=== PATIENT | female | born 1995 | race American Indian/Alaskan Native ===

== ENCOUNTER 2018-03-21 20:25 | Emergency (ER) | payer SELFPAY ==
[2018-03-21 21:15] LABS: Basophils % (Auto) 0.3 % (0.0-1.8); Eosinophils % (Auto) 0.2 % (0.0-4.3); Hematocrit 35.6 % (30.3-42.9); Hemoglobin 11.3 gm/dl (10.1-14.3); Lymphocytes # (Auto) 2.7 K/mm3 (1.2-5.4); Lymphocytes % (Auto) 22.3 % (13.4-35.0); Mean Corpuscular HGB Conc 32 % (30-34); Mean Corpuscular Hemoglobin 26 pg (28-32); Mean Corpuscular Volume 83 fl (79-97); Monocytes # (Auto) 1.1 K/mm3 (0.0-0.8); Monocytes % (Auto) 9.2 % (0.0-7.3); Platelet Count 202 K/mm3 (140-440); Red Blood Count 4.31 M/mm3 (3.65-5.03); Red Cell Distribution Width 15.3 % (13.2-15.2)
[2018-03-21 21:42] LABS: Bilirubin,Urine NEG (Negative); Blood,Urine NEG (Negative); Color,Urine Yellow (Yellow); Mucus,Urine 1+ /HPF; Protein,Urine <15 mg/dL mg/dL (Negative)
[2018-03-21 21:43] LABS: HCG Qualitative,Urine Negative (Negative)
[2018-03-21 21:59] LABS: Alanine Aminotransferase 5 units/L (7-56); BUN/Creatinine Ratio 12; Blood Urea Nitrogen 6 mg/dL (7-17); Calcium 8.8 mg/dL (8.4-10.2); Hemolysis Index 3
--- NOTE | 2018-03-21 22:58 | Emergency Department Report ---
ED Abdominal Pain HPI - General Chief Complaint: Abdominal Pain Stated Complaint: NECK,THROAT,STOMACH,URINATION PAIN Time Seen by Provider: 03/21/18 22:55 Source: patient Mode of arrival: Ambulatory Limitations: No Limitations - History of Present Illness Initial Comments: 23-year-old female past medical history none presents with complaint of approximately 5 days of sore throat. Possible slight increased urinary frequency. Denies nausea vomiting or cough. States that one of her children has been diagnosed with strep throat and has been treated over the last few days for strep throat. Child tested positive for strep throat. Patient is currently awake alert and oriented 3 fully lucid. No trismus or drooling. Denies any chest pain or abdominal pain at this time. Patient states she had some abdominal pain earlier this week but does not have any at this time. Onset/Timin -: days(s) Severity: mild Quality: aching Improves With: nothing Associated Symptoms: other (sore throat) - Related Data Previous Rx's Medication Instructions Recorded Last Taken Type Dextromethorphan/Benzocaine 1 each PO Q6H PRN #1 pack 03/21/18 Unknown Rx [Cepacol Sorethroat-Cough Chloe] Ibuprofen [Motrin] 600 mg PO Q8H PRN #20 tablet 03/21/18 Unknown Rx Sulfamethoxazole/Trimethoprim 1 each PO BID #6 tablet 03/21/18 Unknown Rx [Bactrim DS TAB] Allergies Allergy/AdvReac Type Severity Reaction Status Date / Time No Known Allergies Allergy Verified 08/21/16 16:07 ED Review of Systems ROS: Stated complaint: NECK,THROAT,STOMACH,URINATION PAIN Other details as noted in HPI Constitutional: denies: chills, fever Eyes: denies: eye pain, eye discharge, vision change ENT: throat pain. denies: ear pain Respiratory: denies: cough, shortness of breath, wheezing Cardiovascular: denies: chest pain, palpitations Endocrine: no symptoms reported Gastrointestinal: denies: abdominal pain, nausea, diarrhea Genitourinary: denies: urgency, dysuria, discharge Musculoskeletal: denies: back pain, joint swelling, arthralgia Skin: denies: rash, lesions Neurological: denies: headache, weakness, paresthesias Psychiatric: denies: anxiety, depression Hematological/Lymphatic: denies: easy bleeding, easy bruising ED Past Medical Hx - Past Medical History Previous Medical History?: No - Surgical History Past Surgical History?: No - Social History Smoking Status: Never Smoker Substance Use Type: None - Medications Home Medications: Home Medications Medication Instructions Recorded Confirmed Last Taken Type Dextromethorphan/Benzocaine 1 each PO Q6H PRN #1 pack 03/21/18 Unknown Rx [Cepacol Sorethroat-Cough Chloe] Ibuprofen [Motrin] 600 mg PO Q8H PRN #20 tablet 03/21/18 Unknown Rx Sulfamethoxazole/Trimethoprim 1 each PO BID #6 tablet 03/21/18 Unknown Rx [Bactrim DS TAB] ED Physical Exam - General Limitations: No Limitations General appearance: alert, in no apparent distress - Head Head exam: Present: atraumatic, normocephalic - Eye Eye exam: Present: normal appearance, PERRL, EOMI - ENT ENT exam: Present: mucous membranes moist - Expanded ENT Exam Expanded Throat exam: Positive: tonsillar erythema (bilateral tonsillar erythema. 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 Absent: respiratory distress - Cardiovascular Cardiovascular Exam: Present: regular rate, normal rhythm. Absent: systolic murmur, diastolic murmur, rubs, gallop - GI/Abdominal GI/Abdominal exam: Present: soft (abdomen soft nontender nondistended), normal bowel sounds - Extremities Exam Extremities exam: Present: normal inspection - Back Exam Back exam: Present: normal inspection - Neurological Exam Neurological exam: Present: alert, oriented X3 - Psychiatric Psychiatric exam: Present: normal affect, normal mood - Skin Skin exam: Present: warm, dry, intact, normal color. Absent: rash ED Course Vital Signs 03/21/18 20:50 Temperature 98.7 F Pulse Rate 99 H Respiratory 17 Rate Blood Pressure 114/78 O2 Sat by Pulse 100 Oximetry ED Medical Decision Making - Lab Data Result diagrams: 03/21/18 21:06 03/21/18 21:06 - Medical Decision Making A/P: Pharyngitis, possible UTI 1-empiric course of Bactrim 3 day course. No clinical signs of pyelonephritis. No flank pain. Patient is symptomatic does complain of some dysuria. Urinalysis shows some leukocytes 2-will treat patient empirically for strep throat based on symptoms and contact with family member also has strep 3-Motrin when necessary, throat lozenges when necessary 4-follow-up with primary care doctor. Vital signs stable for discharge. Patient tolerating by mouth fluid and food without difficulty before discharge Critical care attestation.: If time is entered above; I have spent that time in minutes in the direct care of this critically ill patient, excluding procedure time. ED Disposition Clinical Impression: Urinary tract infection Qualifiers: Urinary tract infection type: acute cystitis Hematuria presence: without hematuria Qualified Code(s): N30.00 - Acute cystitis without hematuria Pharyngitis Qualifiers: Pharyngitis/tonsillitis etiology: unspecified etiology Qualified Code(s): J02.9 - Acute pharyngitis, unspecified Disposition: TO HOME OR SELFCARE Is pt being admited?: No Does the pt Need Aspirin: No Condition: Stable Instructions: Urinary Tract Infection in Women (ED), Pharyngitis (ED) Prescriptions: Dextromethorphan/Benzocaine [Cepacol Sorethroat-Cough Chloe] 1 each PO Q6H PRN #1 pack PRN Reason: Sore Throat Ibuprofen [Motrin] 600 mg PO Q8H PRN #20 tablet PRN Reason: Sore Throat Sulfamethoxazole/Trimethoprim [Bactrim DS TAB] 1 each PO BID #6 tablet Referrals: PRIMARY CARE, [Primary Care Provider] - 3-5 Days [facility] [Provider Group] - 3-5 Days [facility] [Outside] - 3-5 Days Time of Disposition: 23:18
[2018-03-21] MEDS ORDERED: MOTRIN PO ONE (23:09)
[2018-03-21] MEDS ORDERED: BICILLIN L-A IM ONE (23:10)
[2018-03-22 00:07] VITALS: BP 110/71
== END 2018-03-22 00:10 | disposition home or self-care (01) ==
LOC: ED 20:25
DX: N39.0 Urinary tract infection, site not specified (principal); J02.9 Acute pharyngitis, unspecified
CPT/HCPCS: 36415; 80053; 81001; 81025; 85025; 87116; 87430; 96372; 99283; J0561

== ENCOUNTER 2020-11-04 10:32 | Emergency (ER) | payer SELFPAY ==
[2020-11-04 11:53] VITALS: BP 112/51
--- NOTE | 2020-11-04 12:02 | Emergency Department Report ---
ED General Adult HPI - General Chief complaint: Upper Respiratory Infection Stated complaint: HEAD/BODY PAIN Time Seen by Provider: 11/04/20 11:57 Source: patient Mode of arrival: Ambulatory Limitations: No Limitations - History of Present Illness Initial comments: 25-year-old -Bh[place] female patient without past medical history presents with complaints of facial headache, congestion, and body aches x2 days. She states Tylenol and NyQuil are not helping. She denies any fever/chills/sweats, chest pain, shortness of breath, loss of taste/smell, nausea/vomiting/diarrhea, or abdominal pain. No vision changes, dizziness, numbness/tingling/weakness, confusion, or difficulty with speech/ambulation per patient. She rates her current headache as a 9/10 in severity and states it worsens with touching her face. - Related Data Previous Rx's Medication Instructions Recorded Last Taken Type Dextromethorphan/Benzocaine 1 each PO Q6H PRN #1 pack 03/21/18 Unknown Rx [Cepacol Sorethroat-Cough Chloe] Ibuprofen [Motrin] 600 mg PO Q8H PRN #20 tablet 03/21/18 Unknown Rx Sulfamethoxazole/Trimethoprim 1 each PO BID #6 tablet 03/21/18 Unknown Rx [Bactrim DS TAB] Fluticasone [Flonase] 2 spray NS QDAY #1 bottle 11/04/20 Unknown Rx Loratadine 10 mg PO QDAY #10 tablet 11/04/20 Unknown Rx Prednisone [predniSONE 10 mg 10 mg PO .TAPER #1 tab.ds.pk 11/04/20 Unknown Rx (6-Day Pack, 21 Tabs)] Allergies Allergy/AdvReac Type Severity Reaction Status Date / Time No Known Allergies Allergy Verified 08/21/16 16:07 ED Review of Systems ROS: Stated complaint: HEAD/BODY PAIN Other details as noted in HPI Constitutional: denies: chills, diaphoresis, fever, malaise, weakness Respiratory: denies: cough, shortness of breath Cardiovascular: denies: chest pain Gastrointestinal: denies: abdominal pain, nausea, vomiting Skin: denies: rash, lesions, change in color Neurological: headache. denies: weakness, numbness, paresthesias, confusion, abnormal gait ED Past Medical Hx - Past Medical History Previous Medical History?: No - Surgical History Past Surgical History?: No - Social History Smoking Status: Never Smoker Substance Use Type: None - Medications Home Medications: Home Medications Medication Instructions Recorded Confirmed Last Taken Type Dextromethorphan/Benzocaine 1 each PO Q6H PRN #1 pack 03/21/18 Unknown Rx [Cepacol Sorethroat-Cough Chloe] Ibuprofen [Motrin] 600 mg PO Q8H PRN #20 tablet 03/21/18 Unknown Rx Sulfamethoxazole/Trimethoprim 1 each PO BID #6 tablet 03/21/18 Unknown Rx [Bactrim DS TAB] Fluticasone [Flonase] 2 spray NS QDAY #1 bottle 11/04/20 Unknown Rx Loratadine 10 mg PO QDAY #10 tablet 11/04/20 Unknown Rx Prednisone [predniSONE 10 mg 10 mg PO .TAPER #1 tab.ds.pk 11/04/20 Unknown Rx (6-Day Pack, 21 Tabs)] ED Physical Exam - General Limitations: No Limitations General appearance: alert, in no apparent distress - Head Head exam: Present: atraumatic, normocephalic - Eye Eye exam: Present: normal appearance. Absent: scleral icterus - ENT ENT exam: Present: normal orophraynx, other (Frontal and bilateral maxillary sinus tenderness to palpation noted without any facial swelling or redness) - Neck Neck exam: Present: full ROM. Absent: tenderness - Respiratory Respiratory exam: Present: normal lung sounds bilaterally, respiratory distress - Cardiovascular Cardiovascular Exam: Present: regular rate, normal rhythm - Extremities Exam Extremities exam: Present: normal inspection - Back Exam Back exam: Present: normal inspection - Neurological Exam Neurological exam: Present: alert, oriented X3, normal gait. Absent: motor sensory deficit - Psychiatric Psychiatric exam: Present: normal affect, normal mood - Skin Skin exam: Present: warm, dry, intact, normal color. Absent: rash, cyanosis, diaphoretic, erythema ED Course Vital Signs 11/04/20 11:52 Temperature 97.8 F Pulse Rate 99 H Respiratory 16 Rate Blood Pressure 112/51 [Right] O2 Sat by Pulse 99 Oximetry ED Medical Decision Making - Medical Decision Making 25-year-old -B[place] female patient without past medical history presents with complaints of facial headache, congestion, and body aches x2 days. She states Tylenol and NyQuil are not helping. She denies any fever/chills/sweats, chest pain, shortness of breath, loss of taste/smell, nausea/vomiting/diarrhea, or abdominal pain. No vision changes, dizziness, numbness/tingling/weakness, confusion, or difficulty with speech/ambulation per patient. She rates her current headache as a 9/10 in severity and states it worsens with touching her face. Frontal sinus tenderness noted on exam. No fever or tachycardia noted. Will treat for viral sinusitis with steroids, antihistamines, and decongestants. Recommend follow-up with primary care doctor in 3 to 5 days. Discussed signs and symptoms that should prompt immediate return to the emergency department in detail with patient verbalizes understanding. She is well-appearing and stable for discharge home. Critical care attestation.: If time is entered above; I have spent that time in minutes in the direct care of this critically ill patient, excluding procedure time. ED Disposition Clinical Impression: Acute viral sinusitis Disposition: DC- TO HOME OR SELFCARE Is pt being admited?: No Condition: Stable Instructions: Sinusitis, Adult, [id number] Prescriptions: Fluticasone [Flonase] 2 spray NS QDAY #1 bottle Loratadine 10 mg PO QDAY #10 tablet Prednisone [predniSONE 10 mg (6-Day Pack, 21 Tabs)] 10 mg PO .TAPER #1 tab.ds.pk Referrals: [facility] [Provider Group] - 3-5 Days
== END 2020-11-04 12:41 | disposition home or self-care (01) ==
LOC: ED 10:32
DX: J01.90 Acute sinusitis, unspecified (principal); Z79.899 Other long term (current) drug therapy
CPT/HCPCS: 99281

== ENCOUNTER 2021-03-29 09:45 | Emergency (ER) | payer SELFPAY ==
[2021-03-29 10:09] VITALS: BP 127/76
[2021-03-29 10:48] LABS: Basophils % (Auto) 0.3 % (0.0-1.8); Eosinophils # (Auto) 0.1 K/mm3 (0.0-0.4); Eosinophils % (Auto) 2.3 % (0.0-4.3); Hematocrit 37.1 % (30.3-42.9); Hemoglobin 12.6 gm/dl (10.1-14.3); Lymphocytes # (Auto) 2.1 K/mm3 (1.2-5.4); Lymphocytes % (Auto) 41.1 % (13.4-35.0); Mean Corpuscular HGB Conc 34 % (30-34); Mean Corpuscular Volume 82 fl (79-97); Monocytes # (Auto) 0.6 K/mm3 (0.0-0.8); Monocytes % (Auto) 11.1 % (0.0-7.3); Platelet Count 257 K/mm3 (140-440); Red Blood Count 4.55 M/mm3 (3.65-5.03); Red Cell Distribution Width 15.4 % (13.2-15.2)
[2021-03-29 11:13] LABS: Alanine Aminotransferase 6 units/L (7-56); Albumin 4.2 g/dL (3.9-5); Blood Urea Nitrogen 8 mg/dL (7-17); Calcium 9.3 mg/dL (8.4-10.2); Hemolysis Index 4
[2021-03-29 11:15] LABS: BUN/Creatinine Ratio 13
--- NOTE | 2021-03-29 12:27 | Emergency Department Report ---
ED General Adult HPI - General Chief complaint: Medical Clearance Stated complaint: HEADACHES/NAUSEA Time Seen by Provider: 03/29/21 10:11 Source: patient Mode of arrival: Ambulatory Limitations: No Limitations - History of Present Illness Initial comments: Patient is a 26-year-old female presents emergency room with complaints of concern for . 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 She states that 3 days ago she had light vaginal spotting. She states typically she cycles for approximately 4 days. She has not filed up with a research editor. She states she has some mild lower abdominal cramping. She states one day last week she felt some morning sickness. She denies any fever, nausea, vomiting, diarrhea, pelvic pain, abnormal vaginal discharge, dysuria, urinary symptoms. She reports she took a test [id number] and states it was negative. No past medical history. no allergies to medications. - Related Data Previous Rx's Medication Instructions Recorded Last Taken Type Dextromethorphan/Benzocaine 1 each PO Q6H PRN #1 pack 03/21/18 Unknown Rx [Cepacol Sorethroat-Cough Chloe] Ibuprofen [Motrin] 600 mg PO Q8H PRN #20 tablet 03/21/18 Unknown Rx Sulfamethoxazole/Trimethoprim 1 each PO BID #6 tablet 03/21/18 Unknown Rx [Bactrim DS TAB] Fluticasone [Flonase] 2 spray NS QDAY #1 bottle 11/04/20 Unknown Rx Loratadine 10 mg PO QDAY #10 tablet 11/04/20 Unknown Rx Prednisone [predniSONE 10 mg 10 mg PO .TAPER #1 tab.ds.pk 11/04/20 Unknown Rx (6-Day Pack, 21 Tabs)] Allergies Allergy/AdvReac Type Severity Reaction Status Date / Time No Known Allergies Allergy Verified 08/21/16 16:07 ED Review of Systems ROS: Stated complaint: HEADACHES/NAUSEA Other details as noted in HPI Comment: All other systems reviewed and negative ED Past Medical Hx - Past Medical History Previous Medical History?: No - Surgical History Past Surgical History?: No - Social History Smoking Status: Never Smoker Substance Use Type: None - Medications Home Medications: Home Medications Medication Instructions Recorded Confirmed Last Taken Type Dextromethorphan/Benzocaine 1 each PO Q6H PRN #1 pack 03/21/18 Unknown Rx [Cepacol Sorethroat-Cough Chloe] Ibuprofen [Motrin] 600 mg PO Q8H PRN #20 tablet 03/21/18 Unknown Rx Sulfamethoxazole/Trimethoprim 1 each PO BID #6 tablet 03/21/18 Unknown Rx [Bactrim DS TAB] Fluticasone [Flonase] 2 spray NS QDAY #1 bottle 11/04/20 Unknown Rx Loratadine 10 mg PO QDAY #10 tablet 11/04/20 Unknown Rx Prednisone [predniSONE 10 mg 10 mg PO .TAPER #1 tab.ds.pk 11/04/20 Unknown Rx (6-Day Pack, 21 Tabs)] ED Physical Exam - General Limitations: No Limitations General appearance: alert, in no apparent distress - Head Head exam: Present: atraumatic, normocephalic - Eye Eye exam: Present: normal appearance - ENT ENT exam: Present: mucous membranes moist - Respiratory Respiratory exam: Present: normal lung sounds bilaterally. Absent: respiratory distress, wheezes, rales, rhonchi, stridor, chest wall tenderness, accessory muscle use, decreased breath sounds, prolonged expiratory - Cardiovascular Cardiovascular Exam: Present: regular rate, normal rhythm, normal heart sounds. Absent: systolic murmur, diastolic murmur, rubs, gallop - GI/Abdominal GI/Abdominal exam: Present: soft, normal bowel sounds. Absent: distended, tenderness, guarding, rebound, rigid - Neurological Exam Neurological exam: Present: alert, oriented X3 - Psychiatric Psychiatric exam: Present: normal affect, normal mood - Skin Skin exam: Present: warm, dry, intact ED Course Vital Signs 03/29/21 10:09 Temperature 97.9 F Pulse Rate 88 Respiratory 16 Rate Blood Pressure 127/76 [Right] O2 Sat by Pulse 98 Oximetry ED Medical Decision Making - Lab Data Result diagrams: 03/29/21 10:32 03/29/21 10:32 Lab Results 03/29/21 03/29/21 03/29/21 Range/Units 10:32 10:32 10:32 WBC 5.0 (4.5-11.0) K/mm3 RBC 4.55 (3.65-5.03) M/mm3 Hgb 12.6 (10.1-14.3) gm/dl Hct 37.1 (30.3-42.9) % MCV 82 (79-97) fl MCH 28 (28-32) pg MCHC 34 (30-34) % RDW 15.4 H (13.2-15.2) % Plt Count 257 (140-440) K/mm3 Lymph % (Auto) 41.1 H (13.4-35.0) % [place] % (Auto) 11.1 H (0.0-7.3) % Eos % (Auto) 2.3 (0.0-4.3) % Baso % (Auto) 0.3 (0.0-1.8) % Lymph # (Auto) 2.1 (1.2-5.4) K/mm3 [place] # (Auto) 0.6 (0.0-0.8) K/mm3 Eos # (Auto) 0.1 (0.0-0.4) K/mm3 Baso # (Auto) 0.0 (0.0-0.1) K/mm3 Seg Neutrophils % 45.2 (40.0-70.0) % Seg Neutrophils # 2.3 (1.8-7.7) K/mm3 Sodium 137 (137-145) mmol/L Potassium 4.4 (3.6-5.0) mmol/L Chloride 101.1 (98-107) mmol/L Carbon Dioxide 27 (22-30) mmol/L Anion Gap 13 mmol/L BUN 8 (7-17) mg/dL Creatinine 0.6 (0.6-1.2) mg/dL Estimated GFR > 60 ml/min BUN/Creatinine Ratio 13 % Glucose 91 (65-100) mg/dL Calcium 9.3 (8.4-10.2) mg/dL Total Bilirubin 0.40 (0.1-1.2) mg/dL AST 17 (5-40) units/L ALT 6 L (7-56) units/L Alkaline Phosphatase 67 (35-129) units/L Total Protein 8.3 H (6.3-8.2) g/dL Albumin 4.2 (3.9-5) g/dL Albumin/Globulin Ratio 1.0 % Lipase 37 (13-60) units/L HCG, Quant < 2 (0-4) mIU/mL Urine Color (Yellow) Urine Turbidity (Clear) Urine pH (5.0-7.0) Ur Specific [place] (1.003-1.030) Urine Protein (Negative) mg/dL Urine Glucose (UA) (Negative) mg/dL Urine Ketones (Negative) mg/dL Urine Blood (Negative) Urine Nitrite (Negative) Ur Reducing Substances Urine Bilirubin (Negative) Urine Ictotest Urine Urobilinogen (<2.0) mg/dL Ur Leukocyte Esterase (Negative) Urine WBC (Auto) (0.0-6.0) /HPF Urine RBC (Auto) (0.0-6.0) /HPF U Epithel Cells (Auto) (0-13.0) /HPF Urine Mucus /HPF 03/29/21 Range/Units 10:58 WBC (4.5-11.0) K/mm3 RBC (3.65-5.03) M/mm3 Hgb (10.1-14.3) gm/dl Hct (30.3-42.9) % MCV (79-97) fl MCH (28-32) pg MCHC (30-34) % RDW (13.2-15.2) % Plt Count (140-440) K/mm3 Lymph % (Auto) (13.4-35.0) % [place] % (Auto) (0.0-7.3) % Eos % (Auto) (0.0-4.3) % Baso % (Auto) (0.0-1.8) % Lymph # (Auto) (1.2-5.4) K/mm3 [place] # (Auto) (0.0-0.8) K/mm3 Eos # (Auto) (0.0-0.4) K/mm3 Baso # (Auto) (0.0-0.1) K/mm3 Seg Neutrophils % (40.0-70.0) % Seg Neutrophils # (1.8-7.7) K/mm3 Sodium (137-145) mmol/L Potassium (3.6-5.0) mmol/L Chloride (98-107) mmol/L Carbon Dioxide (22-30) mmol/L Anion Gap mmol/L BUN (7-17) mg/dL Creatinine (0.6-1.2) mg/dL Estimated GFR ml/min BUN/Creatinine Ratio % Glucose (65-100) mg/dL Calcium (8.4-10.2) mg/dL Total Bilirubin (0.1-1.2) mg/dL AST (5-40) units/L ALT (7-56) units/L Alkaline Phosphatase (35-129) units/L Total Protein (6.3-8.2) g/dL Albumin (3.9-5) g/dL Albumin/Globulin Ratio % Lipase (13-60) units/L HCG, Quant (0-4) mIU/mL Urine Color Yellow (Yellow) Urine Turbidity Clear (Clear) Urine pH 6.0 (5.0-7.0) Ur Specific [place] 1.013 (1.003-1.030) Urine Protein <15 mg/dl (Negative) mg/dL Urine Glucose (UA) Neg (Negative) mg/dL Urine Ketones Neg (Negative) mg/dL Urine Blood Mod (Negative) Urine Nitrite Neg (Negative) Ur Reducing Substances Not Reportable Urine Bilirubin Neg (Negative) Urine Ictotest Not Reportable Urine Urobilinogen < 2.0 (<2.0) mg/dL Ur Leukocyte Esterase Sm (Negative) Urine WBC (Auto) 4.0 (0.0-6.0) /HPF Urine RBC (Auto) 7.0 (0.0-6.0) /HPF U Epithel Cells (Auto) 1.0 (0-13.0) /HPF Urine Mucus 2+ /HPF - Medical Decision Making Patient is a 26-year-old female presents emergency room with complaints of concern for . 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 She states that 3 days ago she had light vaginal spotting. She states typically she cycles for approximately 4 days. She has not filed up with a research editor. She states she has some mild lower abdominal cramping. She states one day last week she felt some morning sickness. She denies any fever, nausea, vomiting, diarrhea, pelvic pain, abnormal vaginal discharge, dysuria, urinary symptoms. She reports she took a test [id number] and states it was negative. No past medical history. no allergies to medications. vitals are normal. Labs are stable. hcg quant is less than 2. UA is WNL. No abdominal tenderness on exam, no guarding, no rebound, no rigidity, no masses, no peritone al signs. will be referred to SECURITY SITE SUPERVISOR. advised pt Please follow-up with your LICENSED PROFESSIONAL COUNSELOR. If you do not have a LICENSED PROFESSIONAL COUNSELOR one has been listed below. Follow-up with your primary care doctor. Return to emergency room for new or worsening symptoms. Critical care attestation.: If time is entered above; I have spent that time in minutes in the direct care of this critically ill patient, excluding procedure time. ED Disposition Clinical Impression: Abnormal uterine bleeding (AUB) Disposition: TO HOME OR SELFCARE Is pt being admited?: No Does the pt Need Aspirin: No Condition: Stable Instructions: Abnormal Uterine Bleeding Additional Instructions: Please follow-up with your LICENSED PROFESSIONAL COUNSELOR. If you do not have a LICENSED PROFESSIONAL COUNSELOR one has been listed below. Follow-up with your primary care doctor. Return to emergency room for new or worsening symptoms. Referrals: PRIMARY CARE, [Primary Care Provider] - 2-3 Days JERAMIE TOBIAS MD [Staff Physician] - 2-3 Days Forms: Work/School Release Form(ED) Time of Disposition: 13:00 Print Language: HEBREW
[2021-03-29 12:45] LABS: Mucus,Urine 2+ /HPF
[2021-03-29 12:51] LABS: Bilirubin,Urine NEG (Negative); Blood,Urine MOD (Negative); Color,Urine Yellow (Yellow); Protein,Urine <15 mg/dL mg/dL (Negative); Urobilinogen,Urine < 2.0 mg/dL (<2.0)
== END 2021-03-29 13:05 | disposition home or self-care (01) ==
LOC: ED 09:45
DX: N93.9 Abnormal uterine and vaginal bleeding, unspecified (principal); Z79.899 Other long term (current) drug therapy
CPT/HCPCS: 36415; 80053; 81001; 83690; 84702; 85025

== ENCOUNTER 2021-04-05 12:45 | Emergency (ER) | payer SELFPAY ==
[2021-04-05 16:17] VITALS: BP 112/79
--- NOTE | 2021-04-05 16:47 | Event Note ---
ED Screening Note Date of service: 04/05/21 Time: 16:45 ED Screening Note: 26-year-old female patient presents to the emergency department with complaints of abdominal pain, back pain, and diarrhea since yesterday. Patient was evaluated in the emergency department for similar symptoms last week. She was referred to um specialist for outpatient follow-up but has not made an appointment. She has been experiencing irregular menstrual cycles; currently, she has no vaginal bleeding. No known sick contacts. No current steroid or antibiotic use. No recent travel. No fever or vomiting. No recent trauma. General: Awake, appropriately interactive, no acute distress. Neck: Supple. Full range of motion intact. Cardiovascular: Normal peripheral perfusion. Pulmonary: No respiratory distress. Patient is speaking normally without use of accessory muscles. Skin: No apparent rashes or lesions. Neurological: No facial asymmetry. Speech is clear. Follows commands. Patient is alert and oriented. Musculoskeletal: Moves all four extremities spontaneously with normal range of motion. Back: Diffuse lumbar tenderness. Psych: Cooperative. Appropriate mood and affect. I have greeted and performed a focused rapid initial assessment of this patient. A comprehensive ED assessment and evaluation of the patient, analysis of all test results, and completion of the medical decision-making process will be conducted by additional ED providers. This initial assessment/diagnostic orders/clinical plan/treatment(s) is/are subject to change based on patients health status, clinical progression and re-assessment. Further treatment and workup at subsequent clinical provider's discretion. Patient/guardian urged not to elope from the ED as their condition may be serious if not clinically assessed and managed.
[2021-04-05 17:09] LABS: Basophils % (Auto) 0.7 % (0.0-1.8); Eosinophils # (Auto) 0.1 K/mm3 (0.0-0.4); Eosinophils % (Auto) 1.3 % (0.0-4.3); Hematocrit 37.3 % (30.3-42.9); Lymphocytes # (Auto) 1.7 K/mm3 (1.2-5.4); Lymphocytes % (Auto) 25.1 % (13.4-35.0); Mean Corpuscular HGB Conc 32 % (30-34); Mean Corpuscular Volume 83 fl (79-97); Monocytes # (Auto) 0.6 K/mm3 (0.0-0.8); Monocytes % (Auto) 9.6 % (0.0-7.3); Platelet Count 295 K/mm3 (140-440); Red Blood Count 4.51 M/mm3 (3.65-5.03); Red Cell Distribution Width 15.4 % (13.2-15.2)
[2021-04-05 17:35] LABS: Alanine Aminotransferase 7 units/L (7-56); Albumin 4.4 g/dL (3.9-5); Blood Urea Nitrogen 7 mg/dL (7-17); Calcium 9.2 mg/dL (8.4-10.2); Hemolysis Index 1
[2021-04-05 18:00] LABS: BUN/Creatinine Ratio 14
[2021-04-05] MEDS ORDERED: KETOROLAC 60 MG/2 ML INJ IM ONE ×2 (18:13→20:30)
--- NOTE | 2021-04-05 19:03 | XRay Report ---
ABDOMEN 1 VIEW(S) INDICATION / CLINICAL INFORMATION: abd pain. COMPARISON: None available. FINDINGS: TUBES / LINES: None. BOWEL GAS PATTERN: No significant abnormality. FREE AIR / EXTRALUMINAL GAS: None seen. ADDITIONAL FINDINGS: No significant additional findings. IMPRESSION: 1. No significant abnormality. Signer Name: Lucio Duenas MD Signed: 04/05/2021 6:58 PM Workstation Name: [id number]
--- NOTE | 2021-04-05 19:07 | Emergency Department Report ---
ED General Adult HPI - General Chief complaint: Back Pain/Injury Stated complaint: BACK PAIN PUI?: No Time Seen by Provider: 04/05/21 17:15 Source: patient Mode of arrival: Ambulatory Limitations: No Limitations - History of Present Illness Initial comments: 26-year-old female with no significant past history presents to the emergency room complaining of low abdominal pain, back pain and diarrhea. Onset of symptoms she states was yesterday. Patient states that she had 2 episodes of watery stool. She states that the pain in her lower abdomen and lower back has been constant. She admits that she has been having similar back pain since she had epidural for her 6yrs ago. She denies any associated nausea, vomiting or bloody stools or melena. She reports white vaginal discharge. She states that she has had the same sexual partner for the past 2 months but unprotected sexual intercourse. She denies any concern for STD. Patient also states that her last menstrual cycle was in March 2021 but it was shorter than normal lasting only 2 days. She states that she is not sure if she is but she reports was seen here last week for similar symptoms and they did labs and a urinalysis and they told her nothing was wrong recommended that she follow-up with her PCP and [employer] but she states that she did not follow-up. She denies any past abdominal surgeries. Reviewed ER visit from when patient was seen here on March 29, 2021. 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 Labs were drawn and were unremarkable. 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 Complaint: Abdominal pain/back pain/diarrhea -: days(s) (1) Severity scale (0 -10): 10 - Related Data Previous Rx's Medication Instructions Recorded Last Taken Type DOXYCYCLINE Hyclate [Vibramycin 100 mg PO Q12HR #14 capsule 04/05/21 Unknown Rx CAP] Ibuprofen [Motrin] 800 mg PO Q8HR PRN #30 tablet 04/05/21 Unknown Rx metroNIDAZOLE [Flagyl] 500 mg PO Q12HR #14 tab 04/05/21 Unknown Rx Allergies Allergy/AdvReac Type Severity Reaction Status Date / Time No Known Allergies Allergy Verified 08/21/16 16:07 ED Review of Systems ROS: Stated complaint: BACK PAIN Other details as noted in HPI Comment: All other systems reviewed and negative Constitutional: denies: chills, fever Eyes: denies: eye pain, eye discharge, vision change ENT: denies: ear pain, throat pain, hearing loss, epistaxis, congestion Respiratory: denies: cough, shortness of breath, SOB with exertion, SOB at rest, wheezing Cardiovascular: denies: chest pain, palpitations, dyspnea on exertion, edema, syncope, paroxysmal nocturnal dyspnea Gastrointestinal: abdominal pain, diarrhea. denies: nausea, vomiting, constipation, hematemesis, hematochezia Genitourinary: abnormal menses (Shorted than nl last mth ). denies: urgency, dysuria, frequency, hematuria, discharge Musculoskeletal: back pain Skin: denies: rash, lesions, change in color, change in hair/nails, pruritus Neurological: denies: headache, weakness, numbness, paresthesias, confusion, abnormal gait, vertigo Psychiatric: denies: anxiety, depression, auditory hallucinations, visual h allucinations, homicidal thoughts, suicidal thoughts Hematological/Lymphatic: denies: easy bleeding, easy bruising ED Past Medical Hx - Past Medical History Previous Medical History?: No - Surgical History Past Surgical History?: No - Social History Smoking Status: Never Smoker Substance Use Type: None - Medications Home Medications: Home Medications Medication Instructions Recorded Confirmed Last Taken Type DOXYCYCLINE Hyclate [Vibramycin 100 mg PO Q12HR #14 capsule 04/05/21 Unknown Rx CAP] Ibuprofen [Motrin] 800 mg PO Q8HR PRN #30 tablet 04/05/21 Unknown Rx metroNIDAZOLE [Flagyl] 500 mg PO Q12HR #14 tab 04/05/21 Unknown Rx ED Physical Exam - General Limitations: No Limitations General appearance: alert, in no apparent distress - Head Head exam: Present: atraumatic, normocephalic, normal inspection - Eye Eye exam: Present: normal appearance, PERRL, EOMI Pupils: Present: normal accommodation - Neck Neck exam: Present: normal inspection, full ROM - Respiratory Respiratory exam: Present: normal lung sounds bilaterally. Absent: respiratory distress, wheezes, rales, rhonchi, stridor - Cardiovascular Cardiovascular Exam: Present: regular rate, normal rhythm, normal heart sounds - GI/Abdominal GI/Abdominal exam: Present: soft, tenderness (Mild diffuse abdominal ttp without guarding or rebound ). Absent: distended, guarding, rebound, rigid - External exam: Present: normal external exam Speculum exam: Present: vaginal discharge (small amt white d/c ) Bi-manual exam: Present: adnexal tenderness (mild bilaterally ). Absent: cervical motion tendernes, adnexal mass, uterine enlargement, uterine tenderness - Extremities Exam Extremities exam: Present: normal inspection - Back Exam Back exam: Present: normal inspection, full ROM, paraspinal tenderness (lower thoracic area - mild ). Absent: vertebral tenderness - Neurological Exam Neurological exam: Present: alert, oriented X3, CN II-XII intact, normal gait - Psychiatric Psychiatric exam: Present: normal affect, normal mood - Skin Skin exam: Present: intact ED Course Vital Signs 04/05/21 16:15 Temperature 98.0 F Pulse Rate 53 L Respiratory 18 Rate Blood Pressure 112/79 [Right] O2 Sat by Pulse 98 Oximetry ED Medical Decision Making - Lab Data Result diagrams: 04/05/21 16:52 04/05/21 16:52 - Radiology Data Radiology results: report reviewed Patient: BIB LYNCH MR#: [id number] : 1995 Acct:[id number] Age/Sex: 26 / F ADM Date: 04/05/21 Loc: ED Attending Dr: Ordering Physician: FERNANDO BLUM Date of Service: 04/05/21 Procedure(s): XR abdomen 1V ap Accession Number(s): [id number] cc: FERNANDO BLUM Fluoro Time In Minutes: ABDOMEN 1 VIEW(S) INDICATION / CLINICAL INFORMATION: abd pain. COMPARISON: None available. FINDINGS: TUBES / LINES: None. BOWEL GAS PATTERN: No significant abnormality. FREE AIR / EXTRALUMINAL GAS: None seen. ADDITIONAL FINDINGS: No significant additional findings. IMPRESSION: 1. No significant abnormality. Signer Name: Lucio Duenas MD Signed: 04/05/2021 6:58 PM Workstation Name: [id number] Transcribed By: Dictated By: Lucio Duenas MD Electronically Authenticated By: Lucio Duenas MD Signed Date/Time: 04/05/211857 DD/ 57 TD/TT: - Medical Decision Making Labs reviewed -- CBC normal/CMP unremarkable, UA concerning for UTI, wet prep + BV and trichomonas; KUB show nothing acute. Patient currently resting comfortably, sitting on the bed talking on her phone. She is not in any acute pain or respiratory distress. She is not toxic or ill- appearing. Vital signs are stable. She has a nonsurgical abdominal exam. Pelvic exam shows mild bilateral adnexal tenderness but otherwise no CMT, no mass, or any vaginal bleeding. Discussed results with patient. Patient will be treated with Rocephin for possible gonorrhea, she will also be discharged home on doxycycline and Flagyl. The history, exam, diagnostic testing and current condition do not suggest acute appendicitis, bowel obstruction, acute cholecystitis, bowel perforation, major GI bleed, severe diverticulitis, polynephritis, ovarian abscess, significant PID, sepsis or other significant pathology to warrant further testing, continued ED treatment, admission or surgical evaluation at this point. Discussed treatment plan with patient. She expressed understanding of instructions and agree with plan. Patient stable at time of discharge. Critical care attestation.: If time is entered above; I have spent that time in minutes in the direct care of this critically ill patient, excluding procedure time. ED Disposition Clinical Impression: Trichomonas vaginitis, UTI (urinary tract infection), Bacterial vaginosis, Abdominal pain Disposition: TO HOME OR SELFCARE Is pt being admited?: No Does the pt Need Aspirin: No Condition: Stable Instructions: Urinary Tract Infection, Adult, Aall-er-Ixee, Bacterial Vaginosis, [id number], Abdominal Pain, Adult, [id number], Trichomoniasis, Bacterial Vaginosis (ED) Additional Instructions: Take the flagyl and doxycycline as prescribed. Take both antibiotics with food. DO not drink alcohol while taking the flagyl. Take the zofran as needed for nausea and vomiting and the motrin as prescribed for pain. Your partner should be tested and treated as well. Recommend no sexual contact for at least 7 days after treatment. Follow up with PCP. Return to ED if worse. Prescriptions: metroNIDAZOLE [Flagyl] 500 mg PO Q12HR #14 tab Ibuprofen [Motrin] 800 mg PO Q8HR PRN #30 tablet PRN Reason: Pain DOXYCYCLINE Hyclate [Vibramycin CAP] 100 mg PO Q12HR #14 capsule Referrals: YFN NARVAEZ MD [Staff Physician] - 3-5 Days Forms: STI Treatment and Prevention Time of Disposition: 21:20
[2021-04-05 21:02] LABS: Bacteria,Urine 1+ /HPF (Negative); Bilirubin,Urine NEG (Negative); Blood,Urine NEG (Negative); Color,Urine Yellow (Yellow); Mucus,Urine 2+ /HPF; Protein,Urine <15 mg/dL mg/dL (Negative)
[2021-04-05] MEDS ORDERED: LIDOCAINE-MPF (1%) 10 MG/1 ML VIAL 5 ML INFILTRATI ONE (21:17)
== END 2021-04-05 22:20 | disposition home or self-care (01) ==
LOC: ED 12:45
DX: A59.01 Trichomonal vulvovaginitis (principal); N39.0 Urinary tract infection, site not specified; N76.0 Acute vaginitis; B96.89 Other specified bacterial agents as the cause of diseases classified elsewhere; Z79.899 Other long term (current) drug therapy
CPT/HCPCS: 36415; 74018; 80053; 81001; 83690; 83735; 84703; 85025; 87086; 87210; 87591; 96372; 99284; J0696; J1885

== ENCOUNTER 2021-04-22 08:58 | Emergency (ER) | payer SELFPAY ==
[2021-04-22 09:44] VITALS: BP 114/74
--- NOTE | 2021-04-22 10:33 | Emergency Department Report ---
ED Female HPI - General Chief complaint: Urogenital-Female Stated complaint: VAGINAL BURNING AND ITCHING Time Seen by Provider: 04/22/21 10:26 Source: patient Mode of arrival: Ambulatory Limitations: No Limitations - History of Present Illness Initial comments: Patient is a 26-year-old female presents emergency room complaints of vaginal itching and burning and dysuria that began a couple days ago. She states that she is sexually active without protection. Patient was evaluated in the emergency department on 04/05/2021 and was positive for chlamydia and trichomonas at that time. Patient continues to practice unsafe sex practices despite ashok an STD on 04/05/2021. She also did not ensure that her partner got testing and treatment. She did not follow-up with a clinic or the health department in order to receive a full STD panel as she was instructed. Patient states that her symptoms did improve after completing the medications but she again had unprotected intercourse and then had symptoms beginning a few days later. She states that she has a small amount of white vaginal discharge. She denies any pelvic pain, abdominal pain, fever, nausea, vomiting, diarrhea, urinary frequency, back pain, vaginal bleeding. Any medication allergies. Last menstrual cycle 03/30/2021. - Related Data Previous Rx's Medication Instructions Recorded Last Taken Type DOXYCYCLINE Hyclate [Vibramycin 100 mg PO Q12HR #14 capsule 04/05/21 Unknown Rx CAP] Ibuprofen [Motrin] 800 mg PO Q8HR PRN #30 tablet 04/05/21 Unknown Rx metroNIDAZOLE [Flagyl] 500 mg PO Q12HR #14 tab 04/05/21 Unknown Rx metroNIDAZOLE [Flagyl] 500 mg PO BID 7 Days #14 tab 04/22/21 Unknown Rx Allergies Allergy/AdvReac Type Severity Reaction Status Date / Time No Known Allergies Allergy Verified 08/21/16 16:07 ED Review of Systems ROS: Stated complaint: VAGINAL BURNING AND ITCHING Other details as noted in HPI Comment: All other systems reviewed and negative ED Past Medical Hx - Past Medical History Previous Medical History?: Yes Additional medical history: Vaginal delivery x1 - Surgical History Past Surgical History?: No - Social History Smoking Status: Never Smoker Substance Use Type: Alcohol - Medications Home Medications: Home Medications Medication Instructions Recorded Confirmed Last Taken Type DOXYCYCLINE Hyclate [Vibramycin 100 mg PO Q12HR #14 capsule 04/05/21 Unknown Rx CAP] Ibuprofen [Motrin] 800 mg PO Q8HR PRN #30 tablet 04/05/21 Unknown Rx metroNIDAZOLE [Flagyl] 500 mg PO Q12HR #14 tab 04/05/21 Unknown Rx metroNIDAZOLE [Flagyl] 500 mg PO BID 7 Days #14 tab 04/22/21 Unknown Rx ED Physical Exam - General Limitations: No Limitations General appearance: alert, in no apparent distress - Head Head exam: Present: atraumatic, normocephalic - Eye Eye exam: Present: normal appearance - ENT ENT exam: Present: mucous membranes moist - Respiratory Respiratory exam: Present: normal lung sounds bilaterally. Absent: respiratory distress, wheezes, rales, rhonchi, stridor, chest wall tenderness, accessory muscle use, decreased breath sounds, prolonged expiratory - Cardiovascular Cardiovascular Exam: Present: regular rate, normal rhythm, normal heart sounds. Absent: systolic murmur, diastolic murmur, rubs, gallop - GI/Abdominal GI/Abdominal exam: Present: soft, normal bowel sounds. Absent: distended, tenderness, guarding, rebound, rigid - External exam: Present: other (pt defers) - Neurological Exam Neurological exam: Present: alert, oriented X3 - Psychiatric Psychiatric exam: Present: normal affect, normal mood - Skin Skin exam: Present: warm, dry, intact ED Course Vital Signs 04/22/21 09:40 Temperature 98.3 F Pulse Rate 87 Respiratory 20 Rate Blood Pressure 114/74 O2 Sat by Pulse 100 Oximetry ED Medical Decision Making - Lab Data Lab Results 04/22/21 Range/Units Unknown Urine Color Yellow (Yellow) Urine Turbidity Slightly-cloudy (Clear) Urine pH 6.0 (5.0-7.0) Ur Specific [place] 1.025 (1.003-1.030) Urine Protein 30 mg/dl (Negative) mg/dL Urine Glucose (UA) Neg (Negative) mg/dL Urine Ketones Neg (Negative) mg/dL Urine Blood Neg (Negative) Urine Nitrite Neg (Negative) Urine Bilirubin Neg (Negative) Urine Urobilinogen 2.0 (<2.0) mg/dL Ur Leukocyte Esterase Sm (Negative) Urine WBC (Auto) 2.0 (0.0-6.0) /HPF Urine RBC (Auto) 2.0 (0.0-6.0) /HPF U Epithel Cells (Auto) 7.0 (0-13.0) /HPF Urine Mucus 3+ /HPF Urine HCG, Qual Positive A (Negative) - Medical Decision Making Patient is a 26-year-old female presents emergency room complaints of vaginal itching and burning and dysuria that began a couple days ago. She states that she is sexually active without protection. Patient was evaluated in the emergency department on 04/05/2021 and was positive for chlamydia and trichomonas at that time. Patient continues to practice unsafe sex practices despite ashok an STD on 04/05/2021. She also did not ensure that her partner got testing and treatment. She did not follow-up with a clinic or the health department in order to receive a full STD panel as she was instructed. Patient states that her symptoms did improve after completing the medications but she again had unprotected intercourse and then had symptoms beginning a few days lat er. She states that she has a small amount of white vaginal discharge. She denies any pelvic pain, abdominal pain, fever, nausea, vomiting, diarrhea, urinary frequency, back pain, vaginal bleeding. Any medication allergies. Last menstrual cycle 03/30/2021. Vitals are normal. Patient has no abdominal tenderness on exam, no guarding, no rebound, no rigidity, nor bowel sounds, no peritoneal signs. UA without evidence of UTI or bacteria. Urine is positive. Patient is not having any abdominal pain or vaginal bleeding. Given that patient is having dysuria, vaginal itching and burning, with unprotected intercourse with recently diagnosed STD, will cover patient for STDs again. Patient given ceftriaxone IM while in the emergency department, given that she is we will give patient azithromycin p.o. Patient given prescription for Flagyl. Discussed the importance of follow-up to have a full STD panel by an [employer] MAIN[employer]CE [employer]CH[employer]IC, clinic or by the health department. discussed the importance of [employer] MAINTE[employer]CE [employer]CH[employer]IC follow-up for center follow-up for care and to begin taking a vitamin [id number]. Discussed very strict return precautions in detail with patient. advised pt Please take medication as prescribed. Please follow-up with the health department or clinic to receive a full STD panel. 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 Return to emergency room for any new or worsening symptoms including but not limited to abdominal pain or vaginal bleeding, etc. Critical care attestation.: If time is entered above; I have spent that time in minutes in the direct care of this critically ill patient, excluding procedure time. ED Disposition Clinical Impression: Positive urine test, Concern about STD in female without diagnosis Vaginitis Qualifiers: Chronicity: acute Qualified Code(s): N76.0 - Acute vaginitis Disposition: TO HOME OR SELFCARE Is pt being admited?: No Does the pt Need Aspirin: No Condition: Stable Instructions: Safe Sex, Vaginitis Additional Instructions: Please take medication as prescribed. Please follow-up with the health department or clinic to receive a full STD panel. 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 Return to emergency room for any new or worsening symptoms including but not limited to abdominal pain or vaginal bleeding, etc. resource center: [facility] COVID-19 info: [email or web address] Address: [address] [id number] [facility] Address: [address] [place] [address] [facility] Address: [address] [place] [address] walk in clinic for STD testing: [facility] Address: [address] [place] [id number] Prescriptions: metroNIDAZOLE [Flagyl] 500 mg PO BID 7 Days #14 tab Referrals: [facility] [Outside] - 2-3 Days ONEL ALLEN MD [Staff Physician] - 2-3 Days Forms: Work/School Release Form(ED) Time of Disposition: 11:27 Print Language: YAKUT
[2021-04-22 10:59] LABS: Bilirubin,Urine NEG (Negative); Blood,Urine NEG (Negative); Color,Urine Yellow (Yellow); Mucus,Urine 3+ /HPF
[2021-04-22 11:20] LABS: HCG Qualitative,Urine Positive (Negative)
[2021-04-22] MEDS ORDERED: LIDOCAINE-MPF (1%) 10 MG/1 ML VIAL 5 ML INFILTRATI ONE (11:27)
[2021-04-22] MEDS ORDERED: AZITHROMYCIN 250 MG TAB PO ONE (11:27)
== END 2021-04-22 12:12 | disposition home or self-care (01) ==
LOC: ED 08:58
DX: N76.0 Acute vaginitis (principal); Z32.01 Encounter for pregnancy test, result positive; Z72.89 Other problems related to lifestyle; Z79.899 Other long term (current) drug therapy
CPT/HCPCS: 81001; 81025; 96372; 99283; J0696